=== PATIENT | female | born 1995 | race Two or more races ===

== ENCOUNTER 2021-06-28 17:29 | Emergency (ER) | payer OTHER ==
[~2021-06-28] VITALS: Ht 154.9 cm; Wt 83.0 kg
[2021-06-28 17:37] VITALS: BP 122/56
[2021-06-28] MEDS ORDERED: DIPH25CA83 PO (17:49)
[2021-06-28] MEDS ORDERED: PRED20TA PO (17:49)
[2021-06-28] MEDS ORDERED: predniSONE 20 MG TABLET ONE (17:59)
[2021-06-28] MEDS ORDERED: diphenhydrAMINE HCL 25 MG CAPSULE ONE (17:59)
[2021-06-28] MEDS ORDERED: diphenhydrAMINE HCL 25 MG CAPSULE PO ONE (18:00)
[2021-06-28] MEDS ORDERED: predniSONE 20 MG TABLET PO ONE (18:00)
== END 2021-06-28 18:35 | disposition home or self-care (01) ==
LOC: ER 17:29
DX: L24.9 Irritant contact dermatitis, unspecified cause (principal); Z79.899 Other long term (current) drug therapy
CPT/HCPCS: 99283; J7512; Q0163

== ENCOUNTER 2021-12-06 14:43 | Emergency (ER) | payer BC, OTHER ==
[~2021-12-06] VITALS: Ht 154.9 cm; Wt 80.7 kg
[~2021-12-06 14:43] MED LIST: DIPH25CA83 PO; PRED20TA PO
--- NOTE | 2021-12-06 14:43 | NUR ---
PT BIB SELF C/O ABDOMINAL PAIN, NAUSEA,VOMITING AND DIARRHEA X 3 DAYS S/P COMING BACK FROM [place]. PT IS AAOX4, NOT IN RESPIRATORY DISTRESS, V/S STABLE, KEPT RESTED AND COMFORTABLE. WILL CONTINUE TO MONITOR.
--- NOTE | 2021-12-06 15:15 | NUR ---
URINE SPECIMEN COLLECTED AND SENT TO LAB.
[2021-12-06] MEDS ORDERED: IV NS 0.9% 1,000 ML BAG IV ONE (15:30)
[2021-12-06] MEDS ORDERED: ONDANSETRON HCL/PF 4 MG/2 ML VIAL IVP ONE (15:30)
[2021-12-06] MEDS ORDERED: KETOROLAC TROMETHAMINE INJ 30 MG/ML VIAL IV ONE (15:30)
[2021-12-06] MEDS ORDERED: ONDANSETRON HCL/PF 4 MG/2 ML VIAL ONE (15:45)
[2021-12-06] MEDS ORDERED: KETOROLAC TROMETHAMINE 15 MG/ML VIAL ONE (15:45)
--- NOTE | 2021-12-06 15:50 | NUR ---
IV LINE ESTABLISHED BLOOD DRAWN AND SENT TO LAB.
--- NOTE | 2021-12-06 15:53 | NUR ---
COVID SPECIMEN OBTAINED AND SENT TO LAB.
[2021-12-06 15:59] LABS: BASOPHILS % (AUTO) 0.1 % (0.0-2.0); EOSINOPHILS % (AUTO) 0.4 % (0.0-6.0); HEMATOCRIT 43 % (33-45); HEMOGLOBIN 14.1 g/dL (11.5-14.8); LYMPHOCYTES # (AUTO) 0.3 K/uL (0.8-4.8); LYMPHOCYTES % (AUTO) 3.1 % (20.0-44.0); MEAN CORPUSCULAR HGB CONC 33 g/dl (31.0-36.0); MEAN CORPUSCULAR VOLUME 88 fL (82-100); MONOCYTES # (AUTO) 0.3 K/uL (0.1-1.30); MONOCYTES % (AUTO) 3.1 % (2.0-12.0); NEUTROPHILS # (AUTO) 9.9 K/uL (1.8-8.9); NEUTROPHILS % (AUTO) 93.3 % (43.0-81.0); PLATELET COUNT (AUTO) 235 K/uL (150-450); RED BLOOD CELL COUNT(AUTO) 4.88 MIL/uL (4.0-5.2); WHITE BLOOD COUNT (AUTO) 10.6 K/uL (4.3-11.0)
[2021-12-06 16:14] LABS: BILIRUBIN,URINE NEGATIVE (NEGATIVE); COLOR,URINE YELLOW (YELLOW); LEUKOCYTE ESTERASE ,URINE NEGATIVE (NEGATIVE); NITRITE, URINE NEGATIVE (NEGATIVE); PROTEIN,URINE NEGATIVE (NEGATIVE); UGLUCOSE NEGATIVE (NEGATIVE)
[2021-12-06 16:48] LABS: BACTERIA,URINE Few /HPF (None Seen); SQUAMOUS EPITHELIAL CELL,UR Few /HPF (None Seen); WBC,URINE 0-2 /HPF (0-3)
[2021-12-06 17:36] LABS: ALBUMIN 3.8 g/dL (3.4-5.0); BILIRUBIN,DIRECT 0.1 mg/dL (0.0-0.2); BILIRUBIN,TOTAL 0.4 mg/dL (0.2-1.0); CALCIUM, SERUM 8.6 mg/dL (8.5-10.1); CREATININE 0.8 mg/dL (0.6-1.3); TOTAL PROTEIN, SERUM 7.6 g/dL (6.4-8.2)
[2021-12-06] MEDS ORDERED: ONDA4TAB5 PO (17:58)
[2021-12-06 18:11] VITALS: BP 112/52
--- NOTE | 2021-12-06 18:11 | NUR ---
IV removed. Catheter intact and site benign. Pressure and 4x4 applied to site. No bleeding noted. Patient discharged to home in stable condition. Written and verbal after care instructions given. Patient verbalizes understanding of instruction.
== END 2021-12-06 18:12 | disposition home or self-care (01) ==
LOC: ER 14:57
DX: A08.8 Other specified intestinal infections (principal); E86.0 Dehydration; R11.2 Nausea with vomiting, unspecified; Z97.5 Presence of (intrauterine) contraceptive device; R51.9 Headache, unspecified; Z20.822 Contact with and (suspected) exposure to COVID-19
CPT/HCPCS: 36415; 80048; 80076; 81001; 83690; 84703; 85025; 87426; 96361; 96374; 96375; 99284; C9803; J1885; J2405; J7030

== ENCOUNTER 2023-08-19 21:57 | Emergency (ER) | payer BC, OTHER ==
[~2023-08-19] VITALS: Ht 154.9 cm; Wt 83.9 kg
[~2023-08-19 21:57] MED LIST changes: +ONDA4TAB5 PO
[2023-08-19 23:23] VITALS: TEMP 98.7
[2023-08-19] MEDS ORDERED: BENZONATATE 100 MG CAPSULE PO PRN (23:30)
[2023-08-19] MEDS ORDERED: IV NS 0.9% 1,000 ML IV ONE (23:30)
[2023-08-19] MEDS ORDERED: BENZONATATE 100 MG CAPSULE PO ONE (23:37)
[2023-08-20] MEDS ORDERED: PROM118S5 PO (00:38)
[2023-08-20] MEDS ORDERED: ALBU1.257 NEB (00:38)
[2023-08-20 00:47] VITALS: BP 119/79; O2SAT 98
== END 2023-08-20 00:50 | disposition home or self-care (01) ==
LOC: ER 22:07
DX: J06.9 Acute upper respiratory infection, unspecified (principal); Z20.822 Contact with and (suspected) exposure to COVID-19; Z79.899 Other long term (current) drug therapy
CPT/HCPCS: 99284; 96360; 71045; 87804 ×2; 87426; J7030; C9803

== ENCOUNTER 2025-02-19 22:06 | Emergency (ER) | payer MEDICAID, OTHER ==
[~2025-02-19] VITALS: Ht 157.5 cm; Wt 83.9 kg
[~2025-02-19 22:06] MED LIST changes: +ALBU1.257 NEB; +PROM118S5 PO
[2025-02-20] MEDS ORDERED: FLUORESCEIN SODIUM OPHTH 1 EA STRIP ONE ×2 (01:10→01:12)
[2025-02-20] MEDS ORDERED: TETRAcaine 5 ML BOTTLE ONE (01:11)
[2025-02-20] MEDS: TETRAcaine 5 ML BOTTLE EACHEYE ONE (01:13)
[2025-02-20] MEDS: FLUORESCEIN SODIUM OPHTH 1 EA STRIP OP ONE (01:13)
[2025-02-20] MEDS ORDERED: CIPR2.5D14 EACHEYE (01:19)
[2025-02-20 01:25] VITALS: BP 123/79; TEMP 98.3; O2SAT 100
== END 2025-02-20 01:27 | disposition home or self-care (01) ==
LOC: ER 22:22
DX: S05.02XA Injury of conjunctiva and corneal abrasion without foreign body, left eye, initial encounter (principal); S05.01XA Injury of conjunctiva and corneal abrasion without foreign body, right eye, initial encounter; T65.891A Toxic effect of other specified substances, accidental (unintentional), initial encounter; E03.9 Hypothyroidism, unspecified; J45.909 Unspecified asthma, uncomplicated; Z79.52 Long term (current) use of systemic steroids; Y08.89XA Assault by other specified means, initial encounter; Y93.01 Activity, walking, marching and hiking; Y92.89 Other specified places as the place of occurrence of the external cause; Y99.8 Other external cause status